=== PATIENT | male | born 1950 | race Caucasian/White ===

== ENCOUNTER 2019-06-08 15:06 | Inpatient (IN) | payer BC, OTHER ==
[2019-06-08] MEDS ORDERED: NS 0.9% 1000 ML** 1,000 ML IV ONE ×3 (16:55→23:11)
--- NOTE | 2019-06-08 16:55 | ED ---
Abdominal Pain/Male - HPI Summary HPI Summary: Patient complains of diffuse abdominal pain, nausea, decreased by mouth intake starting at 2 AM this morning. Tolerating fluids. Patient states no bowel movement today, but decent bowel movement yesterday. Abdominal pain described as constant with spikes, rated 9/10. Patient states he was able to pass gas today but it was difficult. Patient states he has been taking Robitussin with codeine every night for 10 days. No prior history of constipation. Denies fever, cough, sore throat, CP, SOB, V/D, change in urine, penile or testicular symptoms. Medical history is HTN, HDL. Abdominal surgical history is hernia repair in 1990. - History of Current Complaint Chief Complaint: EDAbdPain Stated Complaint: ABD PAIN PER PT Time Seen by Provider: 06/08/19 16:53 Hx Obtained From: Patient Onset/Duration: Sudden Onset, Lasting Hours Timing: Constant Severity Initially: Moderate Severity Currently: Severe Pain Intensity: 8 Pain Scale Used: 0-10 Numeric Location: Diffuse Radiates: No Character: Sharp, Cramping Aggravating Factor(s): Nothing Alleviating Factor(s): Nothing Associated Signs And Symptoms: Positive: Decreased Appetite, Nausea - Allergies/Home Medications Allergies/Adverse Reactions: Allergies Allergy/AdvReac Type Severity Reaction Status Date / Time No Known Allergies Allergy Verified 06/10/19 16:05 PMH/Surg Hx/FS Hx/Imm Hx Endocrine/Hematology History: Denies: Hx Diabetes, Hx Thyroid Disease Cardiovascular History: Reports: Hx Hypertension Respiratory History: Denies: Hx Asthma, Hx Chronic Obstructive Pulmonary Disease (COPD) GI History: Denies: Hx Ulcer Sensory History: Denies: Hx Eye Prosthesis Opthamlomology History: Denies: Hx Legally Blind EENT History: Denies: Hx Deafness Neurological History: Denies: Hx Dementia - Surgical History Surgery Procedure, Year, and Place: back surgery 2011 lumbar disc Infectious Disease History: No Infectious Disease History: Denies: Hx Clostridium Difficile, Hx Hepatitis, Hx Human Immunodeficiency Virus (HIV), Hx of Known/Suspected MRSA, Hx Shingles, Hx Tuberculosis, Traveled Outside the [place] in Last 30 Days - Family History Known Family History: Positive: Non-Contributory - Social History Alcohol Use: Occasionally Substance Use Type: Reports: None Smoking Status (MU): Never Smoked Tobacco Review of Systems Constitutional: Negative Eyes: Negative ENT: Negative Cardiovascular: Negative Respiratory: Negative Positive: Abdominal Pain, Nausea Genitourinary: Negative Musculoskeletal: Negative Skin: Negative Neurological: Negative Psychological: Normal All Other Systems Reviewed And Are Negative: Yes Physical Exam Triage Information Reviewed: Yes Vital Signs On Initial Exam: Initial Vitals Temp Pulse Resp BP Pulse Ox 98.9 F 125 18 120/94 98 06/08/19 15:08 06/08/19 15:08 06/08/19 15:08 06/08/19 15:08 06/08/19 15:08 Vital Signs Reviewed: Yes Appearance: Positive: Well-Appearing Skin: Positive: Warm Head/Face: Positive: Normal Head/Face Inspection Eyes: Positive: Normal Neck: Positive: Supple Respiratory/Lung Sounds: Positive: Clear to Auscultation Cardiovascular: Positive: Normal Abdomen Description: Positive: Other: - Diffuse tenderness to palpation. Musculoskeletal: Positive: Normal Neurological: Positive: Normal Psychiatric: Positive: Normal AVPU Assessment: Alert - Romario Coma Scale Best Eye Response: 4 - Spontaneous Best Motor Response: 6 - Obeys Commands Best Verbal Response: 5 - Oriented Coma Scale Total: 15 Procedures - Sedation Patient Received Moderate/Deep Sedation with Procedure: No Diagnostics - Vital Signs Vital Signs Temp Pulse Resp BP Pulse Ox 06/08/19 15:08 98.9 F 125 18 120/94 98 - Laboratory Result Diagrams: 06/10/19 05:15 06/10/19 05:15 Lab Statement: Any lab studies that have been ordered have been reviewed, and results considered in the medical decision making process. Abdominal Pain Male Course/Dx - Course Course Of Treatment: Patient complains of diffuse abdominal pain, nausea, decreased by mouth intake starting at 2 AM this morning. Tolerating fluids. Patient states no bowel movement today, but decent bowel movement yesterday. Abdominal pain described as constant with spikes, rated 9/10. Patient states he was able to pass gas today but it was difficult. Patient states he has been taking Robitussin with codeine every night for 10 days. No prior history of constipation. Denies fever, cough, sore throat, CP, SOB, V/D, change in urine, penile or testicular symptoms. Medical history is HTN, HDL. Abdominal surgical history is hernia repair in 1990. Vital signs within normal limits. WBC 17.2. Hemoglobin 19.4. Lactic 2.2. Labs otherwise unremarkable. CT abdomen and pelvis positive for dilated small bowel loops with air fluid levels and transition at the level of the ileum suspicious for small bowel obstruction. Admitted to surgery Dr. Shannon - Diagnoses Provider Diagnoses: Small bowel obstruction Discharge ED - Sign-Out/Discharge Documenting (check all that apply): Patient Departure - Discharge Plan Condition: Stable Disposition: ADMITTED TO [facility] - Billing Disposition and Condition Condition: STABLE Disposition: Admitted to [facility]
[2019-06-08] MEDS ORDERED: Ondansetron INJ* 2 MG/ML VIAL IV ONE ×2 (16:56→22:08)
[2019-06-08] MEDS ORDERED: Morphine 4 MG/ML VIAL (1 ml) 4 MG/ML VIAL IV ONE ×2 (17:20→22:08)
[2019-06-08 17:34] LABS: ABS Lymphocytes 0.8 10^3/ul (1.0-4.8); ABS Monocytes 0.5 10^3/ul (0-0.8); ABS Neutrophils 15.9 10^3/ul (1.5-7.7); Hematocrit 56 % (42-52); Hemoglobin 19.4 g/dL (14.0-18.0); Lymphocyte % 4.5 %; Mean Corpuscular HGB Conc 35 g/dL (31-36); Mean Corpuscular Hemoglobin 33 pg (27-31); Mean Corpuscular Volume 95 fL (80-94); Mean Platelet Volume 7.5 fL (7.4-10.4); Nucleated Red Blood Cells % 0.2; Platelet Count 240 10^3/uL (150-450); Red Blood Count 5.88 10^6 /uL (4.18-5.48); Red Cell Distribution Width 13 % (10-15); White Blood Count 17.2 10^3/uL (3.5-10.8)
[2019-06-08 17:56] LABS: Albumin 5.3 g/dL (3.2-5.2); Albumin/Globulin Ratio 1.4 (1-3); BUN/Creatinine Ratio 17.2 (8-20); C Reactive Protein 2.7 mg/L (<8.01); EGFR African American 58.6 (>60); EGFR Non-African American 48.4 (>60); Globulin 3.7 g/dL (2-4); Potassium 4.5 mmol/L (3.5-5.0); Total Bilirubin 1.1 mg/dL (0.2-1.0)
[2019-06-08 18:00] LABS: Calcium 13.2 mg/dL (8.6-10.3)
[2019-06-08] MEDS ORDERED: Iodixanol* (CONTRAST) 320 MG/ML 100 ML SDV IV ONE (19:13)
[2019-06-09 00:45] LABS: Urine Appearance Clear; Urine Bilirubin Negative (Negative); Urine Blood Negative (Negative); Urine Color Yellow; Urine Glucose Negative (Negative); Urine Ketones Negative (Negative); Urine Nitrite Negative (Negative); Urine Protein Negative (Negative); Urine Specific Gravity > 1.060 (1.010-1.030); Urine Urobilinogen Negative (Negative)
[2019-06-09] MEDS ORDERED: hydrALAZINE IV* 20 MG/ML VIAL IV SLOW PU PRN (01:51)
[2019-06-09] MEDS: Ondansetron INJ* 2 MG/ML VIAL IV PRN ×2 (02:44→06:41)
[2019-06-09] MEDS: Morphine INJ* 2 MG/ML 1 ML SYRINGE (TWO MG - NEW SYRINGE VERSION) IV PRN ×3 (02:44→12:25)
[2019-06-09] MEDS: Lactated Ringers 1000 ML Bag* 1,000 ML IV SCH ×3 (02:49→22:20)
--- NOTE | 2019-06-09 03:32 | CONS ---
CONSULTATION REPORT: DATE OF CONSULT: 06/08/19 CHIEF COMPLAINT: Abdominal pain, abdominal distention. HISTORY OF PRESENT ILLNESS: This pleasant 69-year-old gentleman began having abdominal pain almost 24 hours ago late in the night. The pain came on relatively suddenly and diffusely. He felt bloated. Pain has been severe at least 7/10 at times, it can come in waves. It has been relieved by pain medication and nausea medication here, he has had some emesis. He had a large bowel movement yesterday and passed some gas this morning. He has been taking cough syrup with codeine in it daily for a number of days for a cough. Denies fevers or chills. Denies blood per rectum. Denies loss of weight or change in appetite. Workup in the emergency room included CT scan of the abdomen and pelvis, which showed dilated stomach and small bowel with transition zone in the ileum. There was stool throughout the colon. There was some gas in the colon. Laboratory studies [place] [id number]. He had an abnormally high calcium level of 13. He has been hydrated with a few liters of IV fluid. He has been urinating here in the emergency room; it is not recorded that I can see. PAST MEDICAL HISTORY: Denies history of diabetes, cardiac, kidney, or lung disease. He does have a history of hypertension. PAST SURGICAL HISTORY: Right inguinal surgery back in 1990. He has had back surgery for a lumbar disk in 2010. MEDICATIONS: He states he has taken a few Tums over the last few days. ALLERGIES: No known drug allergies. FAMILY HISTORY: Denies history of colorectal or breast cancer. 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 Alcohol use occasional. Does not smoke. REVIEW OF SYSTEMS: General: Denies weight loss or change in appetite. HEENT: No changes in vision, hearing, or swallowing. No sore throat. Cardiac: No chest pain. Pulmonary: No cough. GI: No blood per rectum. : No hematuria. Skin: Denies rash. Neuro: No headache or dizziness. Musculoskeletal: No lower extremity weakness. Psych: No anxiety or depression. PHYSICAL EXAMINATION: General: A pleasant gentleman, in a relatively good mood. He is currently afebrile. His vital signs are stable. HEENT: The sclerae are anicteric. Oral mucosa is pink and moist. Neck is supple. No JVD. Heart is regular. Lungs are clear. Abdomen: Soft, distended, mildly tender. No signs of peritonitis, guarding, or rebound. No masses or organomegaly. Skin: No rash, petechiae, or jaundice. Extremities: No clubbing, cyanosis, or edema. Neuro Exam: Grossly intact. No focal motor or sensory deficits. DIAGNOSTIC STUDIES/LAB STUDIES: As above, showing an elevated white blood cell count at 17.2 with 92% neutrophils. He has an elevated BUN and creatinine of 25 /1.45. His lactic acid is 3.1, glucose 214, bilirubin 1.1, calcium of 13.2. IMPRESSION: Abdominal pain, distention, abnormal findings on the CT scan concerning for small bowel obstruction. He has never had any major abdominal surgery. He had an open inguinal hernia surgery many years ago. He is not showing signs of peritonitis. I think it is reasonable to place an NG tube, continue with IV hydration, monitor I's and O's, repeat laboratory studies in the morning. It is unclear why his calcium level is elevated and should be repeated after some hydration. This was discussed with the patient. He is in agreement with the treatment plans and all questions were answered. [id number]/[facility] #: [id number] B[facility] SETON HOSPITALLeticia
--- NOTE | 2019-06-09 04:04 | HP ---
CC: Dr. Dilia Younger * ADMISSION HISTORY AND PHYSICAL: DATE OF ADMISSION: PRIMARY CARE PHYSICIAN: Dr. Dilia Younger. CHIEF COMPLAINT: Abdominal pain. HISTORY OF PRESENT ILLNESS: This is a 69-year-old gentleman with a past medical history of hypertension, dyslipidemia, who was in his usual state of health up until 06/08/19, at 2 a.m., he woke up with severe abdominal bloating and some abdominal soreness, which was diffuse in nature. He ignored it, but then could not really sleep and throughout the day, he was having worsening abdominal pain and nausea. So, finally, decided to call Dr. Dilia Younger, who recommended him to go to the ER for further evaluation if his abdominal pain does not resolve. He has also tried multiple doses of over-the- counter antacids along with Tums and Pepto-Bismol, which did not help him. He did state that he took some guaifenesin with codeine for 1 week just to treat his upper respiratory infection and that has resolved since then. Other than nausea, he denies any vomiting. He denies any chest pain, shortness of breath, any numbness, tingling, or weakness. He did state the morphine and the nausea medication helped with the abdominal pain along with the NG suction. He is also complaining of dry lips and was wanting to have some ice chips to wet his mouth. PAST MEDICAL HISTORY: As mentioned hypertension, dyslipidemia. He also thinks that he might have some obstructive sleep apnea as he does have snoring. PAST SURGICAL HISTORY: He has had a lumbar disk surgery in 2010 and in 1990, he had a hernia repair on the right groin. HOME MEDICATIONS: The patient is on: 1. Lisinopril 10 mg oral daily. 2. Atorvastatin 10 mg every evening. 3. Motrin as needed for pain. ALLERGIES: No known drug allergies. FAMILY HISTORY: Father at age 82 with Parkinson's disease. Mother at age 90 with having 4 different types of cancers. SOCIAL HISTORY: He denies smoking. Does drink about a small glass of wine on a daily basis with dinner. Denies any drug abuse. Lives with his and 2 children. 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 REVIEW OF SYSTEMS: A 14-point review of systems did not reveal any new information other than what is mentioned in the HPI. PHYSICAL EXAMINATION GENERAL: The patient is awake, alert, and oriented x3, did not appear to be in any acute respiratory distress. VITAL SIGNS: In the ER, BP was noted to be 154/99; heart rate initially was 121 to 125, improved to 96 after his pain control; saturating 91% on room air; temperature documented at 98.9. HEAD AND NECK: Atraumatic, normocephalic. Bilateral pupils are reactive. Oral mucosa was dry. Neck: Supple. No jugular venous distention. LUNGS: Clear to auscultation bilaterally. No wheezing, rhonchi, or rales. HEART: S1, S2. Regular rate and rhythm. ABDOMEN: Diffusely tender with some guarding and rigidity. No rebound tenderness is appreciated. EXTREMITIES: No cyanosis, clubbing, or edema. DIAGNOSTIC STUDIES/LAB DATA: CBC was showing elevated white count of 7.2, hemoglobin and hemoglobin were stable. Comprehensive metabolic panel shows elevated BUN at 25, creatinine was elevated at 1.4, initial lactic acid elevated at 3.1, calcium initially was elevated at 13.2. AST and ALT were elevated. A repeat calcium improved to 10.1 and repeat lactic acid improved to 2.2. CT abdomen and pelvis was read as oral contrast in the distal esophagus, cannot exclude gastroesophageal reflux disease. There are dilated small bowel loops with air-fluid levels in transition at the level of ileum, suspicious for small bowel obstruction. IMPRESSION: This is a 69-year-old gentleman with hypertension and dyslipidemia , came in with abdominal pain, noted to have small bowel obstruction and also noted to have acute kidney injury and hypercalcemia likely secondary to increased oral intake of calcium-containing antacids, already seen by Dr. Shannon , who recommended NG tube with low-intermittent suction. ASSESSMENT AND PLAN: 1. Small bowel obstruction. Continue with conservative management as recommended by surgeon including NG tube with low-intermittent suction and keep the patient n.p.o. except for ice chips and further treatment would be based on surgical recommendations. We will also start the patient on antiemetics and analgesics as needed. 2. Acute kidney injury, likely secondary to dehydration. We will continue with IV hydration. 3. Lactic acidosis due to dehydration. We will repeat lactic acid level with the a.m. labs. 4. Leukocytosis likely due to hemoconcentration. We will repeat CBC in the morning. No need for any antibiotics at this point. 5. Hypercalcemia, likely due to calcium supplementation. We will continue with IV hydration. Repeat calcium seems to have improved and PTH was noted to be within normal limits. 6. Elevated hemoglobin, likely from dehydration. 7. History of hypertension. We will hold blood pressure medications for now until the patient is able to tolerate p.o. If blood pressure is significantly elevated, we will start the patient on hydralazine IV for any systolic blood pressure greater than 160. 8. History of dyslipidemia. We will hold statins until the patient able to tolerate p.o. 9. DVT prophylaxis with sequential compression device. 10. Code status. Full code. [id number]/[facility] #: [id number] MTDD
[2019-06-09 05:59] LABS: ABS Basophils 0.1 10^3/ul (0-0.2); ABS Lymphocytes 1.9 10^3/ul (1.0-4.8); ABS Monocytes 1.1 10^3/ul (0-0.8); ABS Neutrophils 13.5 10^3/ul (1.5-7.7); Eosinophil % 0.1 %; Hematocrit 52 % (42-52); Hemoglobin 17.3 g/dL (14.0-18.0); Lymphocyte % 11.4 %; Mean Corpuscular HGB Conc 34 g/dL (31-36); Mean Corpuscular Hemoglobin 33 pg (27-31); Mean Corpuscular Volume 97 fL (80-94); Mean Platelet Volume 7.5 fL (7.4-10.4); Platelet Count 217 10^3/uL (150-450); Red Blood Count 5.32 10^6 /uL (4.18-5.48); Red Cell Distribution Width 13 % (10-15); White Blood Count 16.6 10^3/uL (3.5-10.8)
[2019-06-09 06:17] LABS: BUN/Creatinine Ratio 19.4 (8-20); Calcium 9.8 mg/dL (8.6-10.3); EGFR African American 82.3 (>60)
[2019-06-09] MEDS ORDERED: NS 0.9% 1000 ML** 2,000 ML IV ONE ×2 (06:23→06:30)
[2019-06-09 07:30] LABS: Potassium 5.1 mmol/L (3.5-5.0)
[2019-06-09] MEDS ORDERED: Lisinopril TAB* 5 MG PO SCH (09:00)
[2019-06-09 09:19] LABS: C Reactive Protein 10.35 mg/L (<8.01)
--- NOTE | 2019-06-09 09:27 | PN ---
Progress Note - Progress Note Date of Service: 06/09/19 SOAP: Subjective: [] Jun is a pleasant 69 yo male with dilated small bowel loops and transition at the level of the ileum on yesterday CT imaging consistent with a SBO. NG tube is in place, Pt is NPO and receiving IVF. Pt states that he is belching frequently. No flatus or BM since 2 days prior. Denies current pain, nausea or vomiting. Pt reports urinating without difficulty, denies blood in urine. He states that he is feeling better today than yesterday. Reports that pain medication seems to be controlling pain for longer periods of time now. He tells me he is eager to be up and out of bed walking. He denies symptoms of chest pain, SOB, cough, fever, chills and fatigue. Objective: [] Vital Signs - 12 hr Temp Pulse Resp BP Pulse Ox 06/09/19 07:54 20 06/09/19 07:36 97.7 F 93 20 135/87 94 06/09/19 06:41 16 06/09/19 04:04 15 06/09/19 02:44 16 06/09/19 02:28 97.4 F 94 18 146/96 93 06/09/19 02:13 98.7 F 104 16 144/105 92 06/09/19 02:00 101 92 06/09/19 01:39 104 155/104 91 06/09/19 01:10 96 154/99 91 06/09/19 01:00 103 92 06/09/19 00:39 106 157/106 90 06/09/19 00:09 116 153/96 92 06/09/19 00:07 121 171/108 90 06/09/19 00:06 122 91 06/08/19 23:39 113 93 06/08/19 23:09 108 134/104 91 06/08/19 23:00 114 91 06/08/19 22:39 164/101 06/08/19 22:34 20 06/08/19 22:09 121 153/99 91 06/08/19 22:00 123 91 Intake & Output 06/08/19 06/09/19 06/09/19 22:59 06:59 14:59 Intake Total 1999 1332 Output Total 1250 Balance 1999 82 Weight 215 lb 217 lb 11.2 oz Intake: IV Fluids 1999 1332 LR 332 Output: NG Tube Drainage Amount 800 Urine 450 Laboratory Results - last 24 hr 06/08/19 06/08/19 06/08/19 17:28 17:28 17:28 WBC 17.2 H RBC 5.88 H Hgb 19.4 H Hct 56 H MCV 95 H MCH 33 H MCHC 35 RDW 13 Plt Count 240 MPV 7.5 Neut % (Auto) 92.2 Lymph % (Auto) 4.5 [place] % (Auto) 3.1 Eos % (Auto) 0.0 Baso % (Auto) 0.2 Absolute Neuts (auto) 15.9 H Absolute Lymphs (auto) 0.8 L Absolute Monos (auto) 0.5 Absolute Eos (auto) 0.0 Absolute Basos (auto) 0.0 Absolute Nucleated RBC 0.0 Nucleated RBC % 0.2 Sodium 136 Potassium 4.5 Chloride 96 L Carbon Dioxide 26 Anion Gap 14 H BUN 25 H Creatinine 1.45 H Est GFR ( Amer) 58.6 Est GFR (Non-Af Amer) 48.4 BUN/Creatinine Ratio 17.2 Glucose 214 H Lactic Acid 3.1 H* Calcium 13.2 H* Phosphorus Magnesium Total Bilirubin 1.10 H AST 27 ALT 56 H Alkaline Phosphatase 46 C-Reactive Protein 2.70 Total Protein 9.0 H Albumin 5.3 H Globulin 3.7 Albumin/Globulin Ratio 1.4 Lipase 18 PTH Intact Calcium (PTH Intact) Urine Color Urine Appearance Urine pH Ur Specific [place] Urine Protein Urine Ketones Urine Blood Urine Nitrate Urine Bilirubin Urine Urobilinogen Ur Leukocyte Esterase Urine Glucose 06/08/19 06/09/19 06/09/19 17:28 00:10 01:00 WBC RBC Hgb Hct MCV MCH MCHC RDW Plt Count MPV Neut % (Auto) Lymph % (Auto) [place] % (Auto) Eos % (Auto) Baso % (Auto) Absolute Neuts (auto) Absolute Lymphs (auto) Absolute Monos (auto) Absolute Eos (auto) Absolute Basos (auto) Absolute Nucleated RBC Nucleated RBC % Sodium Potassium Chloride Carbon Dioxide Anion Gap BUN Creatinine Est GFR ( Amer) Est GFR (Non-Af Amer) BUN/Creatinine Ratio Glucose Lactic Acid Calcium 10.1 Phosphorus Magnesium Total Bilirubin AST ALT Alkaline Phosphatase C-Reactive Protein Total Protein Albumin Globulin Albumin/Globulin Ratio Lipase PTH Intact 14.9 Calcium (PTH Intact) 13.2 H* Urine Color Yellow Urine Appearance Clear Urine pH 5.0 Ur Specific [place] > 1.060 H Urine Protein Negative Urine Ketones Negative Urine Blood Negative Urine Nitrate Negative Urine Bilirubin Negative Urine Urobilinogen Negative Ur Leukocyte Esterase Negative Urine Glucose Negative 06/09/19 06/09/19 06/09/19 01:00 05:48 05:48 WBC 16.6 H RBC 5.32 Hgb 17.3 Hct 52 MCV 97 H MCH 33 H MCHC 34 RDW 13 Plt Count 217 MPV 7.5 Neut % (Auto) 81.4 Lymph % (Auto) 11.4 [place] % (Auto) 6.7 Eos % (Auto) 0.1 Baso % (Auto) 0.4 Absolute Neuts (auto) 13.5 H Absolute Lymphs (auto) 1.9 Absolute Monos (auto) 1.1 H Absolute Eos (auto) 0.0 Absolute Basos (auto) 0.1 Absolute Nucleated RBC 0.0 Nucleated RBC % 0.0 Sodium Potassium Chloride Carbon Dioxide Anion Gap BUN Creatinine Est GFR ( Amer) Est GFR (Non-Af Amer) BUN/Creatinine Ratio Glucose Lactic Acid 2.2 H* 3.1 H* Calcium Phosphorus Magnesium Total Bilirubin AST ALT Alkaline Phosphatase C-Reactive Protein Total Protein Albumin Globulin Albumin/Globulin Ratio Lipase PTH Intact Calcium (PTH Intact) Urine Color Urine Appearance Urine pH Ur Specific [place] Urine Protein Urine Ketones Urine Blood Urine Nitrate Urine Bilirubin Urine Urobilinogen Ur Leukocyte Esterase Urine Glucose 06/09/19 05:48 WBC RBC Hgb Hct MCV MCH MCHC RDW Plt Count MPV Neut % (Auto) Lymph % (Auto) [place] % (Auto) Eos % (Auto) Baso % (Auto) Absolute Neuts (auto) Absolute Lymphs (auto) Absolute Monos (auto) Absolute Eos (auto) Absolute Basos (auto) Absolute Nucleated RBC Nucleated RBC % Sodium 137 Potassium 5.1 H Chloride 105 Carbon Dioxide 24 Anion Gap 8 BUN 21 Creatinine 1.08 Est GFR ( Amer) 82.3 Est GFR (Non-Af Amer) 68.0 BUN/Creatinine Ratio 19.4 Glucose 152 H Lactic Acid Calcium 9.8 Phosphorus 4.0 Magnesium 1.8 L Total Bilirubin AST ALT Alkaline Phosphatase C-Reactive Protein 10.35 H Total Protein Albumin Globulin Albumin/Globulin Ratio Lipase PTH Intact Calcium (PTH Intact) Urine Color Urine Appearance Urine pH Ur Specific [place] Urine Protein Urine Ketones Urine Blood Urine Nitrate Urine Bilirubin Urine Urobilinogen Ur Leukocyte Esterase Urine Glucose Examination: General: NAD, resting in bed comfortably. Some discomfort from NGT. HENT: NCAT, sclera anicteric, NGT in place and connected to suction. Dry lips & mucus membranes noted. Cardiovascular: Regular rate and rhythm. Pulmonary: CTA throughout all franco. Abdomen: Hypoactive bowel sounds. Mildly distended, soft and non-tender to palpation. Peripheral Vascular: Radial and pedal pulses 2+ b/l. Calves soft, non-tender b/ l. No peripheral edema. Assessment: [] Dilated small bowel loops and transition at the level of the ileum consistent with a SBO. Decreased distension and pain, non-tender to palpation. No flatus or BM x 2 days. Hyperkalemia Lactic Acidosis Improved Leukocytosis (Down from 17.2 to 16.6) Resolution of Hypercalcemia Plan: [] Continue NGT, NPO and IVF, non-surgical management of SBO at this time. Consideration given for alternative IVF 1/2 NS without Potassium. Monitor for improvement of lactic acidosis with improving symptoms & IVF. Repeat CBC and CMP tomorrow.
[2019-06-09 09:35] LABS: Magnesium 1.8 mg/dL (1.9-2.7)
--- NOTE | 2019-06-09 10:41 | PN ---
Progress Note - Progress Note Date of Service: 06/09/19 SOAP: Subjective: []less distension, much less discomfort, ? some flatus Objective: []abdomen soft mild distention non tender Temp Pulse Resp BP Pulse Ox 97.7 F 93 20 135/87 94 06/09/19 07:36 06/09/19 07:36 06/09/19 08:41 06/09/19 07:36 06/09/19 07:36 Laboratory Last Values WBC 16.6 10^3/uL (3.5-10.8) H 06/09/19 05:48 RBC 5.32 10^6 /uL (4.18-5.48) 06/09/19 05:48 Hgb 17.3 g/dL (14.0-18.0) 06/09/19 05:48 Hct 52 % (42-52) 06/09/19 05:48 MCV 97 fL (80-94) H 06/09/19 05:48 MCH 33 pg (27-31) H 06/09/19 05:48 MCHC 34 g/dL (31-36) 06/09/19 05:48 RDW 13 % (10-15) 06/09/19 05:48 Plt Count 217 10^3/uL (150-450) 06/09/19 05:48 MPV 7.5 fL (7.4-10.4) 06/09/19 05:48 Neut % (Auto) 81.4 % 06/09/19 05:48 Lymph % (Auto) 11.4 % 06/09/19 05:48 [place] % (Auto) 6.7 % 06/09/19 05:48 Eos % (Auto) 0.1 % 06/09/19 05:48 Baso % (Auto) 0.4 % 06/09/19 05:48 Absolute Neuts (auto) 13.5 10^3/ul (1.5-7.7) H 06/09/19 05:48 Absolute Lymphs (auto) 1.9 10^3/ul (1.0-4.8) 06/09/19 05:48 Absolute Monos (auto) 1.1 10^3/ul (0-0.8) H 06/09/19 05:48 Absolute Eos (auto) 0.0 10^3/ul (0-0.6) 06/09/19 05:48 Absolute Basos (auto) 0.1 10^3/ul (0-0.2) 06/09/19 05:48 Absolute Nucleated RBC 0.0 10^3/ul 06/09/19 05:48 Nucleated RBC % 0.0 06/09/19 05:48 Sodium 137 mmol/L (135-145) 06/09/19 05:48 Potassium 5.1 mmol/L (3.5-5.0) H 06/09/19 05:48 Chloride 105 mmol/L (101-111) 06/09/19 05:48 Carbon Dioxide 24 mmol/L (22-32) 06/09/19 05:48 Anion Gap 8 mmol/L (2-11) 06/09/19 05:48 BUN 21 mg/dL (6-24) 06/09/19 05:48 Creatinine 1.08 mg/dL (0.67-1.17) 06/09/19 05:48 Est GFR ( Amer) 82.3 (>60) 06/09/19 05:48 Est GFR (Non-Af Amer) 68.0 (>60) 06/09/19 05:48 BUN/Creatinine Ratio 19.4 (8-20) 06/09/19 05:48 Glucose 152 mg/dL (70-100) H 06/09/19 05:48 Lactic Acid 3.1 mmol/L (0.5-2.0) H* 06/09/19 05:48 Calcium 9.8 mg/dL (8.6-10.3) 06/09/19 05:48 Phosphorus 4.0 mg/dL (2.5-5.0) 06/09/19 05:48 Magnesium 1.8 mg/dL (1.9-2.7) L 06/09/19 05:48 Total Bilirubin 1.10 mg/dL (0.2-1.0) H 06/08/19 17:28 AST 27 U/L (13-39) 06/08/19 17:28 ALT 56 U/L (7-52) H 06/08/19 17:28 Alkaline Phosphatase 46 U/L (34-104) 06/08/19 17:28 C-Reactive Protein 10.35 mg/L (<8.01) H 06/09/19 05:48 Total Protein 9.0 g/dL (6.4-8.9) H 06/08/19 17:28 Albumin 5.3 g/dL (3.2-5.2) H 06/08/19 17:28 Globulin 3.7 g/dL (2-4) 06/08/19 17:28 Albumin/Globulin Ratio 1.4 (1-3) 06/08/19 17:28 Lipase 18 U/L (11.0-82.0) 06/08/19 17:28 PTH Intact 14.9 pg/mL (12-88) 06/08/19 17:28 Calcium (PTH Intact) 13.2 mg/dL (8.6-10.3) H* 06/08/19 17:28 Urine Color Yellow 06/09/19 00:10 Urine Appearance Clear 06/09/19 00:10 Urine pH 5.0 (5-9) 06/09/19 00:10 Ur Specific [place] > 1.060 (1.010-1.030) H 06/09/19 00:10 Urine Protein Negative (Negative) 06/09/19 00:10 Urine Ketones Negative (Negative) 06/09/19 00:10 Urine Blood Negative (Negative) 06/09/19 00:10 Urine Nitrate Negative (Negative) 06/09/19 00:10 Urine Bilirubin Negative (Negative) 06/09/19 00:10 Urine Urobilinogen Negative (Negative) 06/09/19 00:10 Ur Leukocyte Esterase Negative (Negative) 06/09/19 00:10 Urine Glucose Negative (Negative) 06/09/19 00:10 Intake & Output 06/07/19 06/08/19 06/09/19 06/10/19 06:59 06:59 06:59 06:59 Intake Total 3332 Output Total 1250 Balance 2082 Weight 217 lb 11.2 oz Intake: IV Fluids 3332 LR 332 Output: NG Tube Drainage Amount 800 Urine 450 Assessment: []improved clinically but no bowel function pt concerned about being 'backed up" from taking daily codeine with cough syrup ct shows moderate to large amt stool in colon Plan: []SBO, ?relative to constipation vs mechanical, overall somewhat improved no acute or surgical abdomen at this time cont IV,NG,try dulcolax suppository to empty colon may need surgery if no improvement
[2019-06-10 05:34] LABS: Hematocrit 45 % (42-52); Hemoglobin 15.4 g/dL (14.0-18.0); Mean Corpuscular HGB Conc 34 g/dL (31-36); Mean Corpuscular Hemoglobin 33 pg (27-31); Mean Corpuscular Volume 96 fL (80-94); Mean Platelet Volume 7.3 fL (7.4-10.4); Platelet Count 178 10^3/uL (150-450); Red Blood Count 4.72 10^6 /uL (4.18-5.48); Red Cell Distribution Width 13 % (10-15); White Blood Count 12.8 10^3/uL (3.5-10.8)
[2019-06-10 05:50] LABS: BUN/Creatinine Ratio 17.9 (8-20); Calcium 9.2 mg/dL (8.6-10.3); EGFR African American 119.8 (>60); Potassium 3.7 mmol/L (3.5-5.0)
[2019-06-10] MEDS: Lactated Ringers 1000 ML Bag* 1,000 ML IV SCH ×3 (05:52→16:15)
[2019-06-10] MEDS ORDERED: LORazepam INJ* 2 MG/ML 1 ML VIAL IV PUSH PRN (10:20)
[2019-06-10] MEDS ORDERED: Lorazepam PYXIS KEY PRN (10:20)
--- NOTE | 2019-06-10 13:00 | PN ---
Progress Note - Progress Note Date of Service: 06/10/19 Note: Surgery Progress: S: Less pain, though still some. Has not used MS since 1200 yesterday. No N/V. No flatus or BM. O: Vital Signs - 8 hr 06/10/19 06/10/19 06/10/19 07:15 08:00 11:34 Temperature 97.9 F 98.3 F Pulse Rate 73 80 Respiratory 20 20 18 Rate Blood Pressure 140/85 130/88 (mmHg) O2 Sat by Pulse 96 95 Oximetry Intake and Output Last 24 Hours (had not been saving urine, nor was any NG output recorded over past 24 hr, though there is ~ 300 ml of greenish drainage in the trap) 06/08/19 06/09/19 06/10/19 06/11/19 06:59 06:59 06:59 06:59 Intake Total 3332 5539 Output Total 1250 250 600 Balance 2082 5289 -600 Weight 217 lb 11.2 oz Intake: IV Fluids 3332 5539 LR 332 3539 NS (0.9%) 2000 Oral 0 Output: NG Tube Drainage Amount 800 350 Urine 450 250 250 Gen: appears comfortable; NG in place Heart: reg Lungs: clear Abd: mildly distended; soft; no sig tenderness to palp; BS hypo AXR: (not yet read) dilated SB loops w/ A/F levels c/w SBO; poss slight decrease in degree of dilation. A: SBO, persistent P: Dr. Shannon also in to see and examine; rec'd OR for laparoscopy, poss laparotomy (likely w/ Dr. Virk- construction secretary)
--- NOTE | 2019-06-10 13:11 | PN ---
Progress Note - Progress Note Date of Service: 06/10/19 SOAP: Subjective: [] no flatus or bm, no pain Objective: []abdomen distended, soft, nd Temp Pulse Resp BP Pulse Ox 98.3 F 80 18 130/88 95 06/10/19 11:34 06/10/19 11:34 06/10/19 11:34 06/10/19 11:34 06/10/19 11:34 Laboratory Last Values WBC 12.8 10^3/uL (3.5-10.8) H 06/10/19 05:15 RBC 4.72 10^6 /uL (4.18-5.48) 06/10/19 05:15 Hgb 15.4 g/dL (14.0-18.0) 06/10/19 05:15 Hct 45 % (42-52) 06/10/19 05:15 MCV 96 fL (80-94) H 06/10/19 05:15 MCH 33 pg (27-31) H 06/10/19 05:15 MCHC 34 g/dL (31-36) 06/10/19 05:15 RDW 13 % (10-15) 06/10/19 05:15 Plt Count 178 10^3/uL (150-450) 06/10/19 05:15 MPV 7.3 fL (7.4-10.4) L 06/10/19 05:15 Neut % (Auto) 81.4 % 06/09/19 05:48 Lymph % (Auto) 11.4 % 06/09/19 05:48 [place] % (Auto) 6.7 % 06/09/19 05:48 Eos % (Auto) 0.1 % 06/09/19 05:48 Baso % (Auto) 0.4 % 06/09/19 05:48 Absolute Neuts (auto) 13.5 10^3/ul (1.5-7.7) H 06/09/19 05:48 Absolute Lymphs (auto) 1.9 10^3/ul (1.0-4.8) 06/09/19 05:48 Absolute Monos (auto) 1.1 10^3/ul (0-0.8) H 06/09/19 05:48 Absolute Eos (auto) 0.0 10^3/ul (0-0.6) 06/09/19 05:48 Absolute Basos (auto) 0.1 10^3/ul (0-0.2) 06/09/19 05:48 Absolute Nucleated RBC 0.0 10^3/ul 06/09/19 05:48 Nucleated RBC % 0.0 06/09/19 05:48 Sodium 136 mmol/L (135-145) 06/10/19 05:15 Potassium 3.7 mmol/L (3.5-5.0) 06/10/19 05:15 Chloride 102 mmol/L (101-111) 06/10/19 05:15 Carbon Dioxide 28 mmol/L (22-32) 06/10/19 05:15 Anion Gap 6 mmol/L (2-11) 06/10/19 05:15 BUN 14 mg/dL (6-24) 06/10/19 05:15 Creatinine 0.78 mg/dL (0.67-1.17) 06/10/19 05:15 Est GFR ( Amer) 119.8 (>60) 06/10/19 05:15 Est GFR (Non-Af Amer) 99.0 (>60) 06/10/19 05:15 BUN/Creatinine Ratio 17.9 (8-20) 06/10/19 05:15 Glucose 131 mg/dL (70-100) H 06/10/19 05:15 Lactic Acid 2.1 mmol/L (0.5-2.0) H* 06/09/19 10:02 Calcium 9.2 mg/dL (8.6-10.3) 06/10/19 05:15 Phosphorus 4.0 mg/dL (2.5-5.0) 06/09/19 05:48 Magnesium 1.8 mg/dL (1.9-2.7) L 06/09/19 05:48 Total Bilirubin 1.10 mg/dL (0.2-1.0) H 06/08/19 17:28 AST 27 U/L (13-39) 06/08/19 17:28 ALT 56 U/L (7-52) H 06/08/19 17:28 Alkaline Phosphatase 46 U/L (34-104) 06/08/19 17:28 C-Reactive Protein 10.35 mg/L (<8.01) H 06/09/19 05:48 Total Protein 9.0 g/dL (6.4-8.9) H 06/08/19 17:28 Albumin 5.3 g/dL (3.2-5.2) H 06/08/19 17:28 Globulin 3.7 g/dL (2-4) 06/08/19 17:28 Albumin/Globulin Ratio 1.4 (1-3) 06/08/19 17:28 Lipase 18 U/L (11.0-82.0) 06/08/19 17:28 PTH Intact 14.9 pg/mL (12-88) 06/08/19 17:28 Calcium (PTH Intact) 13.2 mg/dL (8.6-10.3) H* 06/08/19 17:28 Urine Color Yellow 06/09/19 00:10 Urine Appearance Clear 06/09/19 00:10 Urine pH 5.0 (5-9) 06/09/19 00:10 Ur Specific [place] > 1.060 (1.010-1.030) H 06/09/19 00:10 Urine Protein Negative (Negative) 06/09/19 00:10 Urine Ketones Negative (Negative) 06/09/19 00:10 Urine Blood Negative (Negative) 06/09/19 00:10 Urine Nitrate Negative (Negative) 06/09/19 00:10 Urine Bilirubin Negative (Negative) 06/09/19 00:10 Urine Urobilinogen Negative (Negative) 06/09/19 00:10 Ur Leukocyte Esterase Negative (Negative) 06/09/19 00:10 Urine Glucose Negative (Negative) 06/09/19 00:10 Assessment: []SBO , clinically improving (lab etc) but remains obstructed AFLon abd xray, would benefit from surgical intervention Plan: []exploratory laparoscopy, possible open exploration. discussed with patient and Dr Virk-mason helper surgeon) Risks of bleeding, infection, ijury to bowel, ostomy , bowel resection discussed. pt would like to proceed, all ?'s answered
[2019-06-10] MEDS ORDERED: Famotidine IV* 10 MG/ML 2 ML (20 mg) IV ONE (15:09)
[2019-06-10] MEDS ORDERED: Buffered Lidocaine 1% SYRIN* 1 ML/SYRINGE INTRADERM ONE (15:09)
[2019-06-10] MEDS ORDERED: Famotidine IV* 10 MG/ML 2 ML (20 mg) ONE (15:42)
[2019-06-10] MEDS ORDERED: ceFOXitin 2 GM IVPREMIX* 2 GM/50 ML BAG ONE (16:37)
[2019-06-10] MEDS ORDERED: Lidocaine 2% PF * 5 ML VIAL ONE (19:25)
[2019-06-10] MEDS ORDERED: Propofol* 10 MG/ML 20 ML BTL ONE (19:25)
[2019-06-10] MEDS ORDERED: fentaNYL* 50 MCG/ML 2 ML VIAL (100 MCG VIAL) ONE ×2 (19:27→23:54)
[2019-06-10] MEDS ORDERED: Midazolam* 1 MG/ML 2 ML VIAL (2 MG) ONE (19:27)
[2019-06-10] MEDS ORDERED: EPHEDrine (Pressors)* 50 MG/ML VIAL ONE (20:02)
[2019-06-10] MEDS ORDERED: Bupivacaine 0.25% EPI 200,000* 30 ML SDV ONE (20:43)
[2019-06-10] MEDS ORDERED: Rocuronium* 10 MG/ML VIAL ONE (21:46)
[2019-06-10] MEDS ORDERED: Dexamethasone IV* 4 MG/ML 1 ML (4 MG) ONE (21:47)
[2019-06-10] MEDS ORDERED: Ondansetron INJ* 2 MG/ML VIAL ONE (21:47)
[2019-06-10] MEDS ORDERED: Ketorolac INJ* 30 MG/ML 1 ML VIAL ONE (21:47)
[2019-06-10] MEDS ORDERED: Metoclopramide IV* 5 MG/ML 2 ML VIAL ONE (21:47)
[2019-06-10] MEDS ORDERED: oxyCODONE TAB* 5 MG TAB PO PRN (21:56)
[2019-06-10] MEDS ORDERED: DiMENhydriNATE IV* 50 MG/ML VIAL IV PUSH PRN (21:56)
[2019-06-10] MEDS ORDERED: Naloxone* 0.4 MG/ML 1 ML VIAL IV PRN (21:56)
[2019-06-10] MEDS ORDERED: Neostigmine Methylsulfate* 1 MG/ML 10 ML VIAL (1 mg/ml) ONE (22:49)
[2019-06-10] MEDS ORDERED: Glycopyrrolate IV* 0.2 MG/ML 1 ML VIAL ONE (22:49)
--- NOTE | 2019-06-10 23:14 | OP ---
Operative Report - Blank - Operative Report Date of Operation: 06/10/19 Note: OPERATIVE REPORT Pre-op: Small bowel obstruction Post-Op: Sa me,secondary to omental adhesive band right lower quadrant abdomen Procedure:Laparoscopy, laparoscopic lysis of adhesion Surgeon: MD Sully Asst: none Anes: general with local , Dr. Mesa IVF:1 liter of crystalloid EBL:min Specimen: Small portion of omentum Drain: none Wound: 1 Findings;Adhesive band right lower quadrant To PACU
[2019-06-10] MEDS: fentaNYL* 50 MCG/ML 2 ML VIAL (100 MCG VIAL) IV PRN (23:54)
[2019-06-11] MEDS: fentaNYL* 50 MCG/ML 2 ML VIAL (100 MCG VIAL) IV PRN (00:13)
[2019-06-11] MEDS: Lactated Ringers 1000 ML Bag* 1,000 ML IV SCH ×3 (00:45→17:40)
--- NOTE | 2019-06-11 01:04 | OP ---
CC: Dr. Dilia Younger; [facility] * DATE OF OPERATION: 06/10/19 - ROOM #342 DATE OF : 52 SURGEON: Sami Virk MD LENS FINISHER: None. ANESTHESIOLOGIST: Dr. Mesa. ANESTHESIA: General with local. PRE-OP DIAGNOSIS: Small bowel obstruction. POST-OP DIAGNOSIS: Small bowel obstruction secondary to adhesive band, omental adhesion in right lower quadrant. OPERATIVE PROCEDURE: Diagnostic laparoscopy with laparoscopic lysis of adhesion. ESTIMATED BLOOD LOSS: Minimal. IV FLUIDS: 1 L crystalloid. SPECIMENS: Small portion of omentum. WOUND CLASSIFICATION: I. DRAINS: None. COMPLICATIONS: None. FINDINGS: There was an omental band and with adhesions in the right lower quadrant to the anterior abdominal wall and the cecum. 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 A CT scan showed findings consistent with small bowel obstruction with a transition point. He has had no prior intraabdominal surgery. He has been treated nonoperatively for the last 48 hours without improvement, still having his discomfort and abdominal films show findings once again consistent with small bowel obstruction. After review of his history and progress over the past several days, it is recommended that he now undergo a laparoscopy, possible laparotomy for surgical management of his apparent small bowel obstruction. The procedure was discussed with the patient and his and the risks but not limited to bleeding, infection, intraabdominal abscess formation, injury to peritoneal and retroperitoneal structures, possibility of an open procedure, abscess formation, possible bowel resection with anastomotic leak, possibility of an ostomy and the risk of general anesthesia and blood clots were explained. Also mentioned and discussed that although most of these adhesions are benign in nature, the fact that he has not had prior abdominal surgery certainly can be worrisome for a malignant obstruction and he was aware of this. DESCRIPTION OF PROCEDURE: Written informed consent was obtained, the abdomen was marked with an indelible ink and preoperative antibiotics were administered. The patient was taken to the operating room and placed in a supine position. Sequential compression devices and a warming blanket were applied. General anesthesia was administered. A Foster catheter was inserted. The abdomen was prepped and draped in the usual sterile fashion. Time-out verification was completed. Initially, a vertical incision was made about 4 cm above the umbilicus at the midline. The peritoneal cavity was entered under direct vision. A 12-mm blunt port was inserted and the abdomen was insufflated to 15 mmHg. Under direct vision, a 5-mm port was placed in the left mid to lower abdomen and a second 5-mm port was placed in the suprapubic position. There was some serous fluid within the pelvis, but not a significant amount. There was some small bowel distended that appeared to be more proximally, it was all viable, somewhat hyperemic and slightly thick-walled. In the right lower quadrant, there were some omental attachments extending down to the anterior abdominal wall and cecal area and there also were adhesions between the ascending colon and the anterior abdominal wall, which appeared to be natural. There was no evidence of inflammation or purulence. On pulling up the omentum more superiorly from the right lower quadrant, I broke an adhesion from the omentum, which apparently was to the cecum or pelvic wall, was difficult to determine and this was placed more superiorly. At this point, I was able to identify the cecum, which was unremarkable. The appendix was not readily visualized. I was able to identify the terminal ileum, which was then noted to be completely collapsed and we began to run the bowel more proximally with our bowel graspers and at this point approximately 3 to 4 feet from the terminal ileum, I noted a band/imprint of an adhesive band across the small bowel. This was viable and proximal to this the bowel was distended and erythematous, consistent with this being the adhesive band causing the obstruction. I then continued to run the bowel more proximally and this was all unremarkable other than being distended, but I was unable to reach the ligament of [place] due to the difficulty visualizing this due to more proximal distention, but I felt comfortable that this was the obvious source of the obstruction. Further evaluation of the omental area showed this to be somewhat inflamed and I took a specimen of this using a LigaSure device and sent this to the pathologist in an Endo Catch bag. Once again, I attempted to find the appendix to make sure that there was no inflammatory process causing this adhesion, but it was not intraperitoneal and there was a significant amount of natural-appearing adhesions laterally and peritoneal attachments and the appendix may well have been retrocecal, I did not feel necessary to identify this. I did not identify it easily extending down into the pelvis either. Once this was complete, the bowel was placed back into the pelvis as anatomic position as possible. All ports were removed under direct vision of the camera. The umbilical fascia was closed with interrupted 0 Vicryl suture. The skin was approximated with subcuticular 4-0 Vicryl suture. Steri-Strips were applied. The patient tolerated the procedure well and was taken to the recovery room in stable condition. [id number]/[facility] #: [id number] [facility] HEALTH PARTNERSLeticia
[2019-06-11] MEDS: Ketorolac INJ* 30 MG/ML 1 ML VIAL IV SCH ×4 (02:11→19:40)
[2019-06-11 05:48] LABS: ABS Lymphocytes 0.8 10^3/ul (1.0-4.8); ABS Monocytes 0.9 10^3/ul (0-0.8); ABS Neutrophils 8.2 10^3/ul (1.5-7.7); Hematocrit 40 % (42-52); Hemoglobin 14.1 g/dL (14.0-18.0); Lymphocyte % 8.5 %; Mean Corpuscular HGB Conc 35 g/dL (31-36); Mean Corpuscular Hemoglobin 33 pg (27-31); Mean Corpuscular Volume 95 fL (80-94); Mean Platelet Volume 7.4 fL (7.4-10.4); Platelet Count 154 10^3/uL (150-450); Red Blood Count 4.22 10^6 /uL (4.18-5.48); Red Cell Distribution Width 12 % (10-15); White Blood Count 9.9 10^3/uL (3.5-10.8)
[2019-06-11 06:00] LABS: BUN/Creatinine Ratio 17.9 (8-20); Calcium 8.7 mg/dL (8.6-10.3); EGFR African American 119.8 (>60); Magnesium 1.7 mg/dL (1.9-2.7); Phosphorus 3.8 mg/dL (2.5-5.0); Potassium 3.9 mmol/L (3.5-5.0)
[2019-06-11] MEDS: Famotidine IV* 10 MG/ML 2 ML (20 mg) IV SLOW PU SCH ×2 (09:37→21:15)
--- NOTE | 2019-06-11 10:52 | PN ---
Progress Note - Progress Note Date of Service: 06/11/19 SOAP: Subjective: Feels much better-- NO nausea, no flatus Incisional pain adequately controlled Objective: Temp Pulse Resp BP Pulse Ox 97.8 F 88 18 124/68 99 06/11/19 08:43 06/11/19 08:43 06/11/19 08:43 06/11/19 08:43 06/11/19 08:43 Intake & Output 06/09/19 06/10/19 06/11/19 06/12/19 06:59 06:59 06:59 06:59 Intake Total 3332 5539 1278 980 Output Total 9576 018 0029 400 Balance 2082 5289 128 580 Weight 217 lb 11.2 oz Intake: IV Fluids 3332 5539 1278 980 LR 332 3539 1278 980 NS (0.9%) 2000 Oral 0 0 Output: NG Tube Drainage Amount 800 450 Urine 450 250 700 400 Other: Estimated Void Medium PEX: Comfortable Lungs are clear Cor is RRR Abd is soft and distended. Decreased bowel sounds throughout. Incisions CDI Ext without edema Laboratory Results - last 24 hr 06/11/19 06/11/19 05:27 05:27 WBC 9.9 RBC 4.22 Hgb 14.1 Hct 40 L MCV 95 H MCH 33 H MCHC 35 RDW 12 Plt Count 154 MPV 7.4 Neut % (Auto) 82.8 Lymph % (Auto) 8.5 [place] % (Auto) 8.7 Eos % (Auto) 0.0 Baso % (Auto) 0.0 Absolute Neuts (auto) 8.2 H Absolute Lymphs (auto) 0.8 L Absolute Monos (auto) 0.9 H Absolute Eos (auto) 0.0 Absolute Basos (auto) 0.0 Absolute Nucleated RBC 0.0 Nucleated RBC % 0.0 Sodium 135 Potassium 3.9 Chloride 103 Carbon Dioxide 27 Anion Gap 5 BUN 14 Creatinine 0.78 Est GFR ( Amer) 119.8 Est GFR (Non-Af Amer) 99.0 BUN/Creatinine Ratio 17.9 Glucose 132 H Calcium 8.7 Phosphorus 3.8 Magnesium 1.7 L Assessment: POD# 1 s/p laparoscopy, lysis of adhesions for SBO Ileus Plan: D/C NGT IVF Increase activity Pepcid/Subq heparin Pulmonary toile Ice chips/sips of water Findings are surgery discussed with patient and his .
[2019-06-11] MEDS: Heparin VIAL(*) 5000 UNITS/ML VIAL (FIVE THOUSAND) SUBCUT SCH ×2 (14:10→21:17)
[2019-06-12] MEDS: Lactated Ringers 1000 ML Bag* 1,000 ML IV SCH ×2 (01:20→09:33)
[2019-06-12] MEDS: Ketorolac INJ* 30 MG/ML 1 ML VIAL IV SCH ×4 (01:57→21:08)
[2019-06-12] MEDS: Heparin VIAL(*) 5000 UNITS/ML VIAL (FIVE THOUSAND) SUBCUT SCH ×3 (05:31→21:20)
[2019-06-12] MEDS: Famotidine IV* 10 MG/ML 2 ML (20 mg) IV SLOW PU SCH ×2 (07:59→21:08)
[2019-06-12] MEDS ORDERED: Lactated Ringers 1000 ML Bag* 1,000 ML IV SCH (10:53)
--- NOTE | 2019-06-12 15:46 | PN ---
Progress Note - Progress Note Date of Service: 06/12/19 SOAP: Subjective: Continues to feel better Passed some flatus this AM Ambulating in halls Minimal incisional pain Objective: Temp Pulse Resp BP Pulse Ox 97.8 F 56 18 119/70 97 06/12/19 07:34 06/12/19 07:34 06/12/19 08:00 06/12/19 07:34 06/12/19 07:34 Intake & Output 06/10/19 06/11/19 06/12/19 06/13/19 06:59 06:59 06:59 06:59 Intake Total 5539 1278 4440 987 Output Total 250 1150 2170 1000 Balance 5289 128 2270 -13 Intake: IV Fluids 5539 1278 2880 987 LR 3539 1278 2880 987 NS (0.9%) 2000 Oral 0 0 1560 Output: NG Tube Drainage Amount 450 Urine 470 682 1499 1000 Other: Estimated Void Medium # Bowel Movements 1 Estimated Stool Amount Small PEX: Comfortable Lungs are clear Abd is firm and slightly distended. Incisions CDI. Few bowel sounds present Ext without edema Assessment: POD# 2 s/p laparoscopic lysis of adhesions for SBO Ileus Plan: Clear liquids-advance as tolerated Decrease IVF Increase activity H2 darek and subq heparin Hopeful D/C next 24-48 hours Care discussed with patient and KEITH to cover for me until 06/15
[2019-06-13] MEDS: Ketorolac INJ* 30 MG/ML 1 ML VIAL IV SCH ×3 (02:53→14:14)
[2019-06-13] MEDS: Heparin VIAL(*) 5000 UNITS/ML VIAL (FIVE THOUSAND) SUBCUT SCH ×2 (06:08→14:14)
[2019-06-13] MEDS: Famotidine IV* 10 MG/ML 2 ML (20 mg) IV SLOW PU SCH (08:37)
--- NOTE | 2019-06-13 11:10 | PN ---
Progress Note - Progress Note Date of Service: 06/13/19 SOAP: Subjective: Pt seen and examined. Doing well. some flatus bloat but no nausea Objective: Temp Pulse Resp BP Pulse Ox 97.9 F 54 16 133/83 98 06/13/19 07:59 06/13/19 07:59 06/13/19 08:00 06/13/19 07:59 06/13/19 08:00 Intake & Output 06/12/19 06/13/19 06/13/19 22:59 06:59 14:59 Intake Total 550 Output Total 1250 1300 700 Balance -1250 -750 -700 a and o x3, nad lungs clear abdo: firm, NT, hypoactive BS steri strips in place, no redness ext wnl Assessment: POD 2 lap LATOYA, HD stable, resolving ileus Plan: advance diet if continues to improve, D/c home today- pt aware to advance diet at home no abx, no narcotics f/u as outpt
[2019-06-13 12:19] VITALS: BP 139/79
--- NOTE | 2019-06-29 11:31 | DS ---
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 PROCEDURE PERFORMED: Diagnostic laparoscopy with laparoscopic lysis of adhesions. SECONDARY DIAGNOSES: 1. Hypertension. 2. Dyslipidemia. CONDITION ON DISCHARGE: Good. DISPOSITION: To home. MEDICINES ON DISCHARGE: 1. Lisinopril 10 mg daily. 2. Ibuprofen p.r.n. 3. Atorvastatin 10 mg daily. FOLLOWUP: A followup appointment was made to return to the surgical office in 7 days for wound inspe ction and overall followup. DIET: It was recommended he start with a full liquid diet until having normal GI function and he cou ld advance his diet as tolerated. He was instructed to perform no heavy lifting or exercise until se en in the office. Likewise, no driving until follow up in the office. 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, who presented to the emergency room with a rather sudden onset of severe crampy abdominal pain associated with lala sea and vomiting. He underwent CT scan in the emergency room, which showed dilated stomach and small bowel with a transition zone in the terminal ileum consistent with small bowel obstruction. He had had a right inguinal hernia in 1990. HOSPITAL COURSE: The patient was seen and admitted by the hospitalist service. Surgical consultation was obtained and the initial plan was for a nonoperative conservative management including the nasog astric tube drainage, nasogastric tube decompression, IV fluids, and keeping the patient n.p.o. Over the course of next several days, his abdominal pain improved; however, he had persistent clinica l signs of persistent small bowel obstruction not improving and abdominal films, showing some increas ed dilation of the small bowel. On hospital day #3, with him showing no improvement with nonoperative management, I recommended that he undergo surgical intervention. Surgery was started as a laparoscopic procedure. He was noted to have an omental adhesion in the rig ht lower quadrant to the apparent pelvic side wall with entraped small bowel and this was freed and t his was lysed and the obstruction was released. All bowel was viable. No resection was necessary. A small portion of omentum was sent and returned benign inflamed omentum pathologically. There was no other abnormality noted on the laparoscopy. Postoperatively, he recovered for an ileus over the nex t several days and was discharged home tolerating full liquid diet, passing some flatus with the abo ve instructions. [id number]/[facility] #: [id number]
== END 2019-06-13 15:00 | disposition home or self-care (01) | DRG 224 ==
LOC: ED 15:06 → MEDTELE 06-09 01:04 → SSU 06-11 00:27
PROVIDERS: ADMIT Internal Medicine; ATTEND Surgery
PROC: 0DNU4ZZ Release Omentum, Percutaneous Endoscopic Approach (ICD-10-PCS; 2019-06-10)
PROC: 0DN84ZZ Release Small Intestine, Percutaneous Endoscopic Approach (ICD-10-PCS; principal; 2019-06-10 19:00)
DX: K56.50 Intestinal adhesions [bands], unspecified as to partial versus complete obstruction (principal); E87.2 Acidosis; N17.9 Acute kidney failure, unspecified; I10 Essential (primary) hypertension; E83.52 Hypercalcemia; E78.5 Hyperlipidemia, unspecified; E87.5 Hyperkalemia; D72.829 Elevated white blood cell count, unspecified; K56.7 Ileus, unspecified; E86.0 Dehydration; Z28.21 Immunization not carried out because of patient refusal
CPT/HCPCS: 36415; 71046; 74019; 74177; 80048; 80053; 81003; 82310; 83605; 83690; 83735; 83970; 84100; 85025; 85027; 86140; 88305; 88341; 88342; 96374; 96375; 99284; A9270-GY; J0694; J1100; J1644; J1885; J2060; J2250; J2270; J2405; J2704; J2710; J2765; J3010; Q9967